=== PATIENT | female | born 1985 | race Caucasian/White ===

== ENCOUNTER 2017-09-19 22:27 | Emergency (ER) | payer OTHER ==
[~2017-09-19] VITALS: Ht 170.2 cm; Wt 97.5 kg
[~2017-09-19 22:27] MED LIST: DICL250 PO; IBUP600 PO; SERT50 PO
--- NOTE | 2017-09-19 23:22 | PD ---
HPI Chief Complaint Contractions Travel History International Travel<30 Days: No Contact w/Intl Traveler<30Days: No Known Affected Area: No History of Present Illness HPI 32-year-old 0-1, IUP at 38.0 care uncomplicated by patient report except history of HSV carrier although patient has never had any known outbreaks The patient presents complaining of the onset of painful contractions about 7 PM that her occurring every 5 minutes. She reports that Dr[address] Marshall stripped her membranes in the office. She denies any leaking of fluid or vaginal bleeding. She did pass her mucous plug prior to coming to the hospital. She reports good movement. She reports her cervical exam was 3-4 cm at the office. She is eager to have the baby because her father will be out of PTO and must leave on Sunday. Weeks Gestation: 38 Para: 1 : 4 Miscarriage: 2 History Past Medical History Medical History: Denies Significant Hx Obstetric History Obstetric History 1 SAB 2 History of HSV with no known outbreaks and on Valtrex Past Surgical History Narrative Surgical History of breast augmentation and removal Family History Narrative Family History HTN, CVA Social History Alcohol Use: No Tobacco Use: No Substance Abuse: No Allergies-Medications (Allergen,Severity, Reaction): Coded Allergies: No Known Allergies (Unverified Adverse Reaction, Unknown, 09/19/17) Home Meds Reported Medications Valacyclovir (Valtrex) 500 Mg Tab, 500 MG PO DAILY for Mgmt Viral Infection, # 30 TAB 0 Refills 09/19/17 Vit-Iron Carbonyl ( Plus Iron 29-1 mg) 29 Mg Iron-1 Mg Tab, 1 TAB PO DAILY for Nutritional Supplement, #30 TAB 0 Refills 09/19/17 Discontinued Scripts Dicloxacillin Sodium 250 mg (Dicloxacillin Sodium 250 mg) 250 Mg Cap, 250 MG PO Q6HR for infection, #28 CAP Prov:Rocio Marshall MD 04/13/16 Sertraline Hcl (Zoloft) 50 Mg Tab, 50 MG PO DAILY for Anxiety and/or Insomnia, # 90 TAB Prov:Rocio Marshall MD 04/13/16 Ibuprofen (Motrin 600 Mg Tab) 600 Mg Tab, 600 MG PO Q6H Y for CRAMPING, #30 TAB 0 Refills Prov:Sherin Coleman MD 03/25/16 Review of Systems Except as stated in HPI: all other systems reviewed are Neg Physical Exam Narrative GENERAL: Well-nourished, well-developed patient. SKIN: Warm and dry. HEAD: Normocephalic and atraumatic. EYES: No scleral icterus. No injection or drainage. ENT: No nasal drainage noted. Mucous membranes pink. Airway patent. NECK: Supple, trachea midline. No JVD. CARDIOVASCULAR: Regular rate and rhythm without murmurs, gallops, or rubs. RESPIRATORY: Breath sounds equal bilaterally. No accessory muscle use. BREASTS: Deferred ABDOMEN/GI: Abdomen soft, non-tender, bowel sounds present, no rebound, no guarding Gravid GENITOURINARY: External Genitalia: intact and normal in appearance. Normal BUS. Grossly normal rugae. No cervical or vaginal masses appreciated. SVE 3-4/60/-2, examination unchanged over observation period. FHT's: heart tones are in the 130s with moderate long-term variability, good accelerations, no decelerations noted. This is a reactive NST and category 1 heart rate tracing [place]: Irregular contraction pattern every 2-5 minutes EXTREMITIES: No cyanosis or edema. BACK: Nontender without obvious deformity. NEUROLOGICAL: Awake and alert. Motor and sensory grossly within normal limits. Five out of 5 muscle strength in all muscle groups. Normal speech. Muscle skeletal: Grossly normal rugae motion, gait, muscle strength Psychiatric: Grossly normal memory and affect MDM Plan Assessment/plan: 1. IUP at 38.0, now 38.1 2. No evidence of active labor with cervical exam unchanged over observation period, strict labor precautions are given, bleeding precautions 3. well-being: Reassuring testing with reactive NST and category 1 heart rate tracing. FHR reassuring and appropriate for gestational age. kick counts daily. 4. History of HSV: Continue Valtrex, no history of lesions and no complaints at this time 5. History of breast augmentation and removal 6. Follow up with primary OB in 2-3 days or sooner if needed Diagnosis Diagnosis: Primary Impression: 38 weeks gestation of Additional Impression: False labor at or after 37 completed weeks of gestation, antepartum Disposition: 01 DISCHARGE HOME Condition: Shae Tirado MD Sep 19, 2017 23:22
[2017-09-19] MEDS ORDERED: VALT500T PO (23:27)
[2017-09-19] MEDS ORDERED: PREN29TA PO (23:27)
== END 2017-09-20 00:33 | disposition home or self-care (01) ==
LOC: HOBED 22:27
DX: O47.1 False labor at or after 37 completed weeks of gestation (principal); Z3A.38 38 weeks gestation of pregnancy
CPT/HCPCS: 59025

== ENCOUNTER 2017-09-22 08:11 | Inpatient (IN) | payer OTHER ==
[2017-09-22] VITALS (52 sets, daily range): BP systolic 74–137; BP diastolic 22–96; PULSE 61–116; RESP 18; TEMP 97.6–98
[~2017-09-22 08:11] MED LIST changes: -DICL250 PO; -IBUP600 PO; +PREN29TA PO; -SERT50 PO; +VALT500T PO
[2017-09-22] MEDS ORDERED: LACTATED RINGER'S 1000 ML INJ 1,000 ML IV PRN (10:24)
[2017-09-22] MEDS ORDERED: LACTATED RINGER'S 1000 ML INJ 1,000 ML IV SCH (10:24)
[2017-09-22] MEDS ORDERED: SODIUM CHLORID 0.9% 500 ML INJ 500 ML IV PRN (10:30)
[2017-09-22] MEDS ORDERED: CITRIC ACID-SODIUM CITRATE LIQ 30 ML UDC PO SCH (10:30)
[2017-09-22] MEDS ORDERED: LIDOCAINE HCL 1% 50 ML VIAL INFIL PRN (10:30)
[2017-09-22] MEDS ORDERED: LIDOCAINE HCL 1% 50 ML VIAL I-DERMAL PRN (10:30)
[2017-09-22] MEDS ORDERED: MINERAL OIL 10 ML VIAL TOPICAL PRN (10:30)
[2017-09-22] MEDS ORDERED: OXYTOCIN 30 UNITS-500ML PREMIX 500 ML IV SCH ×2 (10:30→15:15)
[2017-09-22] MEDS ORDERED: OXYTOCIN 30 UNITS-500ML PREMIX 500 ML IV ONE (10:30)
[2017-09-22 10:38] LABS: BACTERIA, URINE RARE /hpf; BILIRUBIN, URINE NEG (NEG); BLOOD, URINE NEG (NEG); GLUCOSE,URINE NEG (NEG); HYALINE CAST, URINE 1 /lpf (RARE); KETONE, URINE NEG (NEG); MUCUS URINE FEW /lpf (OCC); NITRITE,URINE NEG (NEG); PH, URINE 7.5 (5.0-8.5); SQUAMOUS EPITHELIAL CELL URINE 2 /hpf (0-5); URINE COLOR LIGHT-YELLOW (YELLW/STRAW); URINE LEUKOCYTE ESTERASE TRACE (NEG)
[2017-09-22 10:39] LABS: AUTOMATED NEUTROPHIL # 8.4 TH/MM3 (1.8-7.7); BASOPHIL % 0.2 % (0.0-2.0); EOSINOPHIL # 0.1 TH/MM3 (0-0.4); EOSINOPHIL % 0.6 % (0.0-4.0); HEMATOCRIT 32.4 % (35.0-46.0); HEMOGLOBIN 11.3 GM/DL (11.6-15.3); LYMPH % 16.9 % (9.0-44.0); LYMPHOCYTE # 1.9 TH/MM3 (1.0-4.8); MEAN CELL VOLUME 89.5 FL (80.0-100.0); MEAN CORPUSCULAR HEMOGLOBIN 31.2 PG (27.0-34.0); MEAN CORPUSCULAR HGB CONC 34.9 % (32.0-36.0); MEAN PLATELET VOLUME 9.9 FL (7.0-11.0); MONO % 7.1 % (0.0-8.0); MONOCYTE # 0.8 TH/MM3 (0-0.9); NEUT % 75.2 % (16.0-70.0); PLATELET COUNT 223 TH/MM3 (150-450); RED BLOOD COUNT 3.62 MIL/MM3 (4.00-5.30); RED CELL DISTRIBUTION WIDTH 13.8 % (11.6-17.2); WHITE BLOOD COUNT 11.1 TH/MM3 (4.0-11.0)
[2017-09-22] MEDS ORDERED: SODIUM CHLOR 0.9% 1000 ML INJ 1,000 ML IV PRN (10:44)
--- NOTE | 2017-09-22 11:58 | HHI.HP ---
HPI Chief Complaint regular contractions at 38+ weeks Date Seen: Sep 22, 2017 Time Seen: 08:00 Travel History International Travel<30 Days: No Contact w/Intl Traveler<30Days: No Known Affected Area: No History of Present Illness HPI 32 yo mwf at 38 3/7 weeks to L & D with history of regular UCs through night. Seen yesterday in office 4 cm/50/-1 No PTL, HTN, GDM. Close spacing. Good care. SROM with exam and same dilations. 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 child Medical History: Denies Significant Hx Obstetric History Obstetric History term 17 months prior here Past Surgical History Surgical History: No Previous Surgery Family History Family History: Negative Allergies-Medications (Allergen,Severity, Reaction): Coded Allergies: No Known Allergies (Unverified Allergy, Unknown, 09/20/17) Home Meds Reported Medications Valacyclovir (Valtrex) 500 Mg Tab, 500 MG PO DAILY for Mgmt Viral Infection, # 30 TAB 0 Refills 09/19/17 Vit-Iron Carbonyl ( Plus Iron 29-1 mg) 29 Mg Iron-1 Mg Tab, 1 TAB PO DAILY for Nutritional Supplement, #30 TAB 0 Refills 09/19/17 Discontinued Scripts Dicloxacillin Sodium 250 mg (Dicloxacillin Sodium 250 mg) 250 Mg Cap, 250 MG PO Q6HR for infection, #28 CAP Prov:Rocio Marshall MD 04/13/16 Sertraline Hcl (Zoloft) 50 Mg Tab, 50 MG PO DAILY for Anxiety and/or Insomnia, # 90 TAB Prov:Rocio Marshall MD 04/13/16 Ibuprofen (Motrin 600 Mg Tab) 600 Mg Tab, 600 MG PO Q6H Y for CRAMPING, #30 TAB 0 Refills Prov:Sherin Coleman MD 03/25/16 Physical Exam Vital Signs Date Time Temp Pulse Resp B/P (MAP) Pulse Ox O2 Delivery O2 Flow Rate FiO2 09/22/17 11:45 18 09/22/17 11:30 98 09/22/17 11:30 80 107/70 (82) 09/22/17 11:30 97.6 18 09/22/17 10:30 18 Narrative GENERAL: Well-nourished, well-developed patient. SKIN: Warm and dry. HEAD: Normocephalic and atraumatic. EYES: No scleral icterus. No injection or drainage. ENT: No nasal drainage noted. Mucous membranes pink. Airway patent. NECK: Supple, trachea midline. No JVD. CARDIOVASCULAR: Regular rate and rhythm without murmurs, gallops, or rubs. RESPIRATORY: Breath sounds equal bilaterally. No accessory muscle use. BREASTS: Bilateral exam showed no masses , no retractions, no nipple discharge. ABDOMEN/GI: Abdomen soft, non-tender, bowel sounds present, no rebound, no guarding term fundus 4/80/-2 BBOW ruptured at exam EFW 7 1/2 pelvis clinically adequate strip category one EXTREMITIES: No cyanosis or edema. BACK: Nontender without obvious deformity. No CVA tenderness. NEUROLOGICAL: Awake and alert. Motor and sensory grossly within normal limits. Five out of 5 muscle strength in all muscle groups. Normal speech. Caprini VTE Risk Assessment Caprini VTE Risk Assessment: No/Low Risk (score <= 1) Caprini Risk Assessment Model Point Value = 1 Point Value = 2 Point Value = 3 Point Value = 5 Age 41-60 Minor surgery BMI > 25 kg/m2 Swollen legs Varicose veins or History of unexplained or recurrent spontaneous Oral contraceptives or hormone replacement Sepsis (< 1 month) Serious lung disease, including pneumonia (< 1 month) Abnormal pulmonary function Acute myocardial infarction Congestive heart failure (< 1 month) History of inflammatory bowel disease Medical patient at bed rest Age 61-74 Arthroscopic surgery Major open surgery (> 45 min) Laparoscopic surgery (> 45 min) Malignancy Confined to bed (> 72 hours) Immobilizing plaster cast Central venous access Age >= 75 History of VTE Family history of VTE Factor V Leiden Prothrombin [id number] Lupus anticoagulant Anticardiolipin antibodies Elevated serum homocysteine Heparin-induced thrombocytopenia Other congenital or acquired thrombophilia Stroke (< 1 month) Elective arthroplasty Hip, pelvis, or leg fracture Acute spinal cord injury (< 1 month) Prophylaxis Regimen Total Risk Factor Score Risk Level Prophylaxis Regimen 0-1 Low Early ambulation 2 Moderate Order ONE of the following: *Sequential Compression Device (SCD) *Heparin 5000 units SQ BID 3-4 Higher Order ONE of the following medications: *Heparin 5000 units SQ TID *Enoxaparin/Lovenox 40 mg SQ daily (WT < 150 kg, CrCl > 30 mL/min) *Enoxaparin/Lovenox 30 mg SQ daily (WT < 150 kg, CrCl > 10-29 mL/min) *Enoxaparin/Lovenox 30 mg SQ BID (WT < 150 kg, CrCl > 30 mL/min) AND/OR *Sequential Compression Device (SCD) 5 or more Highest Order ONE of the following medications: *Heparin 5000 units SQ TID (Preferred with Epidurals) *Enoxaparin/Lovenox 40 mg SQ daily (WT < 150 kg, CrCl > 30 mL/min) *Enoxaparin/Lovenox 30 mg SQ daily (WT < 150 kg, CrCl > 10-29 mL/min) *Enoxaparin/Lovenox 30 mg SQ BID (WT < 150 kg, CrCl > 30 mL/min) AND *Sequential Compression Device (SCD) Data Data Orders Orders Ob (2e) Additional Admit Info (09/22/17 08:57) Admit To Inpatient (09/22/17 ) Code Status (09/22/17 10:24) Vital Signs (Adult) .Per protocol (09/22/17 10:24) Activity Oob Ad Jennifer (09/22/17 10:24) Heart (09/22/17 10:24) Amnioinfusion (09/22/17 10:24) Urinary Catheter Management .ONCE (09/22/17 10:24) Diet Liquid (09/22/17 Lunch) Lactated Ringer's 1000 Ml Inj (Lr 1000 M (09/22/17 10:24) Lactated Ringer's 1000 Ml Inj (Lr 1000 M (09/22/17 10:24) Sodium Chlorid 0.9% 500 Ml Inj (Ns 500 M (09/22/17 10:30) Sodium Chlor 0.9% 1000 Ml Inj (Ns 1000 M (09/22/17 10:44) Lidocaine 1% Inj (50 Ml) (Xylocaine 1% I (09/22/17 10:30) Citric Acid-Sodium Citrate Liq (Bicitra (09/22/17 10:30) Fentanyl Inj (Fentanyl Inj) (09/22/17 10:30) Fentanyl Inj (Fentanyl Inj) (09/22/17 10:30) Complete Blood Count With Diff (09/22/17 10:24) Hold Clot (09/22/17 10:24) Abo/Rh Blood Type (09/22/17 10:24) Urinalysis - C+S If Indicated (09/22/17 10:24) Drug Screen, Random Urine (09/22/17 10:24) Resp Oxygen Non Rebreathe Mask (09/22/17 ) ^ Epidural / Intrathecal Infus (09/22/17 10:24) Oxytocin 30 Units-500ml Premix (Pitocin (09/22/17 10:30) Lidocaine 1% Inj (50 Ml) (Xylocaine 1% I (09/22/17 10:30) Light Mineral Oil (Muri-Lube Oil) (09/22/17 10:30) ^ Non Stress Test (09/22/17 10:24) Response To Medication .Post New Med Administration, Reaction (09/22/17 10:24) ^ Discontinue Medication (09/22/17 10:24) Oxytocin 30 Units-500ml Premix (Pitocin (09/22/17 10:30) Inpatient Certification (09/22/17 ) Specimen To Be Collected PRN (09/22/17 10:24) Specimen To Be Collected PRN (09/22/17 10:24) Labs Laboratory Tests Test 09/22/17 09:15 White Blood Count 11.1 Red Blood Count 3.62 Hemoglobin 11.3 Hematocrit 32.4 Mean Corpuscular Volume 89.5 Mean Corpuscular Hemoglobin 31.2 Mean Corpuscular Hemoglobin Concent 34.9 Red Cell Distribution Width 13.8 Platelet Count 223 Mean Platelet Volume 9.9 Neutrophils (%) (Auto) 75.2 Lymphocytes (%) (Auto) 16.9 Monocytes (%) (Auto) 7.1 Eosinophils (%) (Auto) 0.6 Basophils (%) (Auto) 0.2 Neutrophils # (Auto) 8.4 Lymphocytes # (Auto) 1.9 Monocytes # (Auto) 0.8 Eosinophils # (Auto) 0.1 Basophils # (Auto) 0.0 CBC Comment DIFF FINAL Differential Comment Urine Color LIGHT-YELLOW Urine Turbidity CLEAR Urine pH 7.5 Urine Specific [place] 1.007 Urine Protein NEG Urine Glucose (UA) NEG Urine Ketones NEG Urine Occult Blood NEG Urine Nitrite NEG Urine Bilirubin NEG Urine Urobilinogen LESS THAN 2.0 Urine Leukocyte Esterase TRACE Urine RBC LESS THAN 1 Urine WBC 1 Urine Squamous Epithelial Cells 2 Urine Bacteria RARE Urine Hyaline Casts 1 Urine Mucus FEW Microscopic Urinalysis Comment CULT NOT INDICATED Urine Opiates Screen NEG Urine Barbiturates Screen NEG Urine Amphetamines Screen NEG Urine Benzodiazepines Screen NEG Urine Cocaine Screen NEG Urine Cannabinoids Screen NEG Assessment/Plan Assessment and Plan srom at term augment as needed epidural as needed anticipate Rocio Marshall MD Sep 22, 2017 11:58
[2017-09-22] MEDS ORDERED: fentaNYL 2MCG-BUPIV 0.125% INJ 100 ML ONE (12:09)
[2017-09-22] MEDS ORDERED: ePHEDrine/NS 25 MG/5 ML SYRINGE ONE (12:09)
[2017-09-22] MEDS ORDERED: ONDANSETRON HCL 4 MG/2 ML VIAL ONE (12:14)
[2017-09-22] MEDS ORDERED: LIDOCAINE HCL 1% 20 ML VIAL ONE (14:19)
[2017-09-22] MEDS ORDERED: ePHEDrine/NS 25 MG/5 ML SYRINGE IV PUSH PRN (14:30)
[2017-09-22] MEDS ORDERED: NO SYSTEM NARCOTICS PRN (15:00)
[2017-09-22] MEDS ORDERED: DO NOT ADMINISTER ANTICOAGULANTS PRN (15:00)
[2017-09-22] MEDS ORDERED: fentaNYL 2MCG-BUPIV 0.125% 100 ML EPIDURAL SCH (15:00)
--- NOTE | 2017-09-22 15:13 | PD.OB.DELI ---
Weeks gestation: 38 Gest age assessed date: Sep 22, 2017 Gest age assessed time: 08:00 Pt started active labor?: Yes Active labor start date: Sep 22, 2017 Active labor start time: 08:00 Medical induction of labor?: No Artificial rupture of membrane: No Anesthesia: Epidural Episiotomy: None Vaginal Delivery: Vacuum Presentation: Occiput posterior Nuchal Cord: None Delayed cord clamping (45 sec): Yes Infant: Female Delivery date: Sep 22, 2017 Delivery time: 15:13 One Minute : 9 Ten Minute : 9 Weight: 7 Placenta: Spontaneous delivery Laceration: No lacerations Estimated blood loss: 300 Rocio Marshall MD Sep 22, 2017 15:13
[2017-09-22] MEDS ORDERED: ZOLPIDEM TARTRATE 5 MG TAB PO PRN (15:15)
[2017-09-22] MEDS ORDERED: ONDANSETRON ODT 4 MG TAB PO PRN (15:15)
[2017-09-22] MEDS ORDERED: SODIUM CHLORIDE 0.9% FLUSH 10 ML FLUSH IV FLUSH PRN (15:15)
[2017-09-22] MEDS ORDERED: ACETAMINOPHEN 325 MG TAB PO PRN (15:15)
[2017-09-22] MEDS ORDERED: DOCUSATE SODIUM 50 MG/SENNA 8.6 MG TAB PO PRN (15:15)
[2017-09-22] MEDS ORDERED: ALUMINUM/MAGNESIUM/SIMETH 30 ML CUP PO PRN (15:15)
[2017-09-22] MEDS ORDERED: BENZOCAINE 20% TOPICAL SPRAY 60 ML CAN TOPICAL PRN (15:15)
[2017-09-22] MEDS ORDERED: DIPHTH/TETANUS/ACEL PERTUSSIS (BOOSTER) 0.5 ML VIAL/PFS IM ONE (16:00)
[2017-09-22] MEDS ORDERED: MEASLES, MUMPS, RUBELLA VACCINE 0.5 ML VIAL SQ ONE (16:00)
[2017-09-22] MEDS: WITCH HAZEL 50%/GLYCERIN 12.5% 40 PAD JAR TOPICAL PRN (17:05)
[2017-09-22] MEDS: IBUPROFEN 800 MG TAB PO PRN (17:05)
[2017-09-22] MEDS ORDERED: SODIUM CHLORIDE 0.9% FLUSH 10 ML FLUSH IV FLUSH SCH (21:00)
[2017-09-23] MEDS: IBUPROFEN 800 MG TAB PO PRN ×2 (00:30→07:54)
[2017-09-23 07:50] VITALS: BP 106/54; PULSE 68; RESP 20; TEMP 97.9
--- NOTE | 2017-09-23 10:35 | HHI.OB ---
Subjective Post Day: 1 Remarks doing well nursing fine no complaints Objective Vitals/I&O Vital Signs Date Time Temp Pulse Resp B/P (MAP) Pulse Ox O2 Delivery O2 Flow Rate FiO2 09/23/17 07:50 68 106/54 (71) 09/23/17 07:50 97.9 20 09/22/17 20:00 98.0 18 09/22/17 20:00 70 117/65 (82) 09/22/17 18:37 98.0 18 09/22/17 18:37 73 117/67 (84) 09/22/17 16:45 98.0 18 09/22/17 16:31 77 74/22 (39) 09/22/17 16:30 18 09/22/17 16:15 85 99/41 (60) 09/22/17 16:06 76 105/59 (74) 09/22/17 16:05 18 09/22/17 15:43 18 09/22/17 15:30 94 133/61 (85) 09/22/17 15:30 18 09/22/17 15:18 96 118/52 (74) 09/22/17 15:00 18 09/22/17 14:50 93 09/22/17 14:46 137/96 (110) 09/22/17 14:45 116 09/22/17 14:45 18 09/22/17 14:40 102 09/22/17 14:35 97 09/22/17 14:30 18 09/22/17 14:30 106 09/22/17 14:30 103 120/65 (83) 09/22/17 14:25 107 09/22/17 14:20 108 09/22/17 14:20 109 09/22/17 14:15 112 09/22/17 14:15 95 09/22/17 14:15 107 125/92 (103) 09/22/17 14:12 18 09/22/17 14:05 69 09/22/17 14:05 69 09/22/17 14:00 73 09/22/17 14:00 18 09/22/17 14:00 73 120/56 (77) 09/22/17 14:00 68 09/22/17 13:55 78 09/22/17 13:55 82 09/22/17 13:50 74 09/22/17 13:50 76 09/22/17 13:46 77 127/86 (100) 09/22/17 13:45 18 09/22/17 13:45 77 09/22/17 13:45 78 09/22/17 13:40 80 09/22/17 13:40 83 09/22/17 13:35 83 09/22/17 13:35 81 09/22/17 13:30 68 09/22/17 13:30 70 18 79/57 (64) 09/22/17 13:30 68 09/22/17 13:25 69 09/22/17 13:25 73 09/22/17 13:20 78 09/22/17 13:20 75 09/22/17 13:15 18 09/22/17 13:15 69 09/22/17 13:15 84 09/22/17 13:15 83 119/64 (82) 09/22/17 13:05 73 09/22/17 13:05 72 09/22/17 13:00 78 09/22/17 13:00 97.9 78 121/52 (75) 09/22/17 13:00 68 09/22/17 12:55 73 09/22/17 12:55 76 09/22/17 12:50 72 09/22/17 12:50 76 09/22/17 12:48 18 09/22/17 12:45 72 09/22/17 12:45 86 09/22/17 12:45 75 125/60 (81) 09/22/17 12:44 18 09/22/17 12:40 76 09/22/17 12:40 77 09/22/17 12:40 71 108/47 (67) 09/22/17 12:36 89 128/76 (93) 09/22/17 12:35 76 09/22/17 12:35 79 09/22/17 12:30 85 18 135/85 (102) 09/22/17 12:30 80 09/22/17 12:30 84 09/22/17 12:28 79 113/81 (92) 09/22/17 12:25 86 09/22/17 12:25 81 09/22/17 12:20 61 09/22/17 12:20 64 1/13/18 12:15 83 09/22/17 11:45 18 09/22/17 11:30 98 09/22/17 11:30 80 107/70 (82) 09/22/17 11:30 97.6 18 Objective Remarks GENERAL: Well-nourished, well-developed patient. CARDIOVASCULAR: Regular rate and rhythm without murmurs, gallops, or rubs. RESPIRATORY: Breath sounds equal bilaterally. No accessory muscle use. ABDOMEN/GI: Abdomen soft, non-tender. Fundus: Firm, non-tender at umbilicus. GENITOURINARY: Light to moderate bleeding. EXTREMITIES: No cyanosis or edema, non-tender, without signs of DVT. Medications and IVs Current Medications Medications (Trade) Dose Ordered Sig/Alea Route Start Time Stop Time Status Last Admin Lactated Ringer's 1,000 ml @ 125 mls/hr Q8H IV 09/22/17 10:24 09/22/17 11:21 Lactated Ringer's 1,000 ml @ 3,000 mls/hr Q20M PRN IV 09/22/17 10:24 09/22/17 11:21 Sodium Chloride 1,000 ml @ 100 mls/hr Q10H PRN IV 09/22/17 10:44 (Xylocaine 1% Inj (50 ml)) 0.1 ml UNSCH X1 PRN I-DERMAL 09/22/17 10:30 09/25/17 10:29 (Bicitra Liq) 30 ml [employer]PECTOR PO 09/22/17 10:30 09/26/17 10:29 (fentaNYL INJ) 50 mcg Q1H PRN IV PUSH 09/22/17 10:30 (fentaNYL INJ) 100 mcg Q1H PRN IV PUSH 09/22/17 10:30 (Xylocaine 1% Inj (50 ml)) 10 ml UNSCH X1 PRN INFIL 09/22/17 10:30 09/24/17 10:29 (Muri-Lube Oil) 10 ml UNSCH PRN TOPICAL 09/22/17 10:30 Oxytocin 500 ml @ 0 mls/hr TITRATE IV 09/22/17 10:30 09/22/17 11:24 Miscellaneous Information No systemic narcotics to be given except... UNSCH PRN .XX 09/22/17 15:00 09/23/17 14:59 Miscellaneous Information DO NOT ADMINISTER ANY ANTICOAGUL... UNSCH PRN .XX 09/22/17 15:00 09/23/17 14:59 Fentanyl/ Bupivacaine HCl 100 ml @ 0 mls/hr TITRATE EPIDURAL 09/22/17 15:00 (ePHEDrine/NS 25 MG/5 ML SYR) 10 mg UNSCH PRN IV PUSH 09/22/17 14:30 09/23/17 14:29 (NS Flush) 2 ml BID IV FLUSH 09/22/17 21:00 (NS Flush) 2 ml UNSCH PRN IV FLUSH 09/22/17 15:15 (Tylenol) 650 mg Q4H PRN PO 09/22/17 15:15 09/23/17 00:31 (Motrin) 800 mg Q8H PRN PO 09/22/17 15:15 09/23/17 07:54 (Americaine 20% Top Spr) 1 spray Q4H PRN TOPICAL 09/22/17 15:15 09/22/17 17:05 (Tucks Pads) 1 applic QID PRN TOPICAL 09/22/17 15:15 09/22/17 17:05 (Dolly-Colace) 2 tab Q12H PRN PO 09/22/17 15:15 09/23/17 07:51 (Ambien) 5 mg HS PRN PO 09/22/17 15:15 (Mag-Al Plus Susp Liq) 15 ml Q8H PRN PO 09/22/17 15:15 (Zofran Odt) 4 mg Q6H PRN PO 09/22/17 15:15 Assessment/Plan Assessment and Plan PPD 1 doing well home in am Rocio Marshall MD Sep 23, 2017 10:35
[2017-09-23] MEDS: WITCH HAZEL 50%/GLYCERIN 12.5% 40 PAD JAR TOPICAL PRN (15:02)
== END 2017-09-23 16:42 | disposition home or self-care (01) | DRG 780 ==
LOC: HOBED 08:11 → H2EA 08:47 → H1EA 18:21
PROVIDERS: ADMIT Obstetrics & Gynecology; ATTEND Obstetrics & Gynecology
PROC: 10D07Z6 Extraction of Products of Conception, Vacuum, Via Natural or Artificial Opening (ICD-10-PCS; principal; 2017-09-22)
DX: O47.1 False labor at or after 37 completed weeks of gestation (principal); Z37.0 Single live birth; Z3A.38 38 weeks gestation of pregnancy
CPT/HCPCS: 59025; 80307; 81001; 85025; J2405; J2590; J3010; J7120